=== PATIENT | female | born 1985 | race Caucasian/White ===

== ENCOUNTER 2017-10-23 14:34 | Emergency (ER) | payer OTHER ==
[~2017-10-23] VITALS: Ht 167.6 cm; Wt 72.0 kg
[~2017-10-23 14:34] MED LIST: CEPH-460 PO; HYDR-3288 PO
[2017-10-23 15:02] VITALS: BP 117/81; PULSE 105; RESP 20; TEMP 98.4; O2SAT 100
[2017-10-23] MEDS ORDERED: SODIUM CHLOR 0.9% 1000 ML INJ 1,000 ML IV ONE ×2 (16:02)
[2017-10-23] MEDS ORDERED: SODIUM CHLOR 0.9% 1000 ML INJ 400 ML IV ONE (16:02)
--- NOTE | 2017-10-23 16:11 | PD ---
HPI Chief Complaint: Skin Problem Time Seen by Provider: 15:54 (Lanette Mandujano) Time Seen by Provider: 15:54 (Monika Gomez MD) Travel History International Travel<30 days: No Contact w/Intl Traveler<30days: No Traveled to known affect area: No (Lanette Mandujano) History of Present Illness HPI 32y female with a history of PUD presents to the ED with pain to the right leg for 3 days because of what she believes is an abscess. Says she injected IV heroin yesterday and this morning and this is worsened her pain. Described her pain as moderate, sharp, achy in stinging without palliative or provocative factors. Patient denies fevers but does feel chills. She has a history of anxiety and depression. LMP 3 days ago. Patient states she has a history of MRSA and septic arthritis to her knee and shoulder while in [place]. 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 (Lanette Mandujano) PFSH Past Medical History Bipolar Disorder: Yes Anxiety: Yes Depression: Yes Cancer: No Cardiovascular Problems: No Diminished Hearing: No Endocrine: No Gastrointestinal Disorders: Yes (gastroparesis) Genitourinary: No Musculoskeletal: Yes Neurologic: Yes Psychiatric: No Reproductive: No Respiratory: No Immunizations Current: Yes Pancreatitis: Yes Seizures: Yes Tetanus Vaccination: < 5 Years Influenza Vaccination: No ?: Not LMP: 10/20/17 : 3 Para: 2 : 1 Dilation and Curettage (D&C): Yes (Lanette Mandujano) Past Surgical History Other Surgery: Yes (MULTIPLE I&D FOR MRSA ABSCESSES) (Lanette Mandujano) Social History Alcohol Use: Yes (socially) Tobacco Use: Yes (/2-1 ppd) Substance Use: Yes (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) (Lanette Mandujano) Allergies-Medications (Allergen,Severity, Reaction): Coded Allergies: diclofenac (Unverified Allergy, Severe, Ulcers, 10/23/17) etodolac (Unverified Allergy, Severe, Ulcers, 10/23/17) flurbiprofen (Unverified Allergy, Severe, Ulcers, 10/23/17) ibuprofen (Unverified Allergy, Severe, Ulcers, 10/23/17) indomethacin (Unverified Allergy, Severe, Ulcers, 10/23/17) ketoprofen (Unverified Allergy, Severe, Ulcers, 10/23/17) ketorolac (Unverified Allergy, Severe, Ulcers, 10/23/17) naproxen (Unverified Allergy, Severe, Ulcers, 10/23/17) oxaprozin (Unverified Allergy, Severe, Ulcers, 10/23/17) tramadol (Unverified Allergy, Severe, Seizures, 10/23/17) Reported Meds & Prescriptions Reported Meds & Active Scripts Active (Monika Gomez MD) Review of Systems Except as stated in HPI: all other systems reviewed are Neg (Lanette Mandujano) Physical Exam Narrative GENERAL: WD, WN in mild distress SKIN: Focused skin assessment warm/dry. HEAD: Atraumatic. Normocephalic. EYES: Pupils equal and round. No scleral icterus. No injection or drainage. ENT: No nasal bleeding or discharge. Mucous membranes pink and moist. NECK: Trachea midline. No JVD. CARDIOVASCULAR: Regular rate and rhythm. No murmur appreciated. RESPIRATORY: No accessory muscle use. Clear to auscultation. Breath sounds equal bilaterally. GASTROINTESTINAL: Abdomen soft, non-tender, nondistended. Hepatic and splenic margins not palpable. MUSCULOSKELETAL: No obvious deformities. No clubbing. No cyanosis. No edema. RLE- central area of induration to lateral calf with erythema distal to site to level of ankle NEUROLOGICAL: Awake and alert. No obvious cranial nerve deficits. Motor grossly within normal limits. Normal speech. PSYCHIATRIC: Appropriate mood and affect; insight and judgment normal. (Lanette Mandujano) Data Data Last Documented VS Vital Signs Date Time Temp Pulse Resp B/P (MAP) Pulse Ox O2 Delivery O2 Flow Rate FiO2 10/23/17 21:36 10/23/17 21:15 100 20 99 Room Air 10/23/17 15:02 98.4 (Monika Gomez MD) Orders Orders Sepsis Workup Initiated (10/23/17 ) Complete Blood Count With Diff (10/23/17 16:02) Comprehensive Metabolic Panel (10/23/17 16:02) Urinalysis - C+S If Indicated (10/23/17 16:02) Blood Culture (10/23/17 16:02) Chest, Single Ap (10/23/17 16:02) Blood Glucose (10/23/17 16:02) Ecg Monitoring (10/23/17 16:02) Iv Access Insert/Monitor (10/23/17 16:02) Oximetry (10/23/17 16:02) Oxygen Administration (10/23/17 16:02) Acetaminophen (Tylenol) (10/23/17 16:15) Sodium Chlor 0.9% 1000 Ml Inj (Ns 1000 M (10/23/17 16:02) Sodium Chlor 0.9% 1000 Ml Inj (Ns 1000 M (10/23/17 16:02) Sodium Chlor 0.9% 1000 Ml Inj (Ns 1000 M (10/23/17 16:02) Clindamycin Inj (Cleocin Inj) (10/23/17 16:45) Asp: Location Of [facility] Admin (Asp Crit: (10/23/17 18:15) Asp:No Reaction To [facility]/Vanc (Asp Crit (10/23/17 18:15) Asp:No Reaction To [facility]/Vanc (Asp Crit (10/23/17 18:15) Asp: Does Not Meet Inpt Admit (Asp Crit: (10/23/17 18:15) Asp: Iv Antibiotics Admit Only (Asp Crit (10/23/17 18:15) Asp: Location Of [facility] Admin (Asp Crit: (10/23/17 18:15) [facility] Information ([facility] (10/23/17 18:15) Dalbavancin Inj (Dalvance Inj) (10/23/17 18:13) Morphine Inj (Morphine Inj) (10/23/17 20:45) Ed Discharge Order (10/23/17 22:08) (Monika Gomez MD) Labs Laboratory Tests Test 10/23/17 17:45 10/23/17 18:12 White Blood Count 9.6 TH/MM3 Red Blood Count 3.79 MIL/MM3 Hemoglobin 11.5 GM/DL Hematocrit 35.1 % Mean Corpuscular Volume 92.5 FL Mean Corpuscular Hemoglobin 30.3 PG Mean Corpuscular Hemoglobin Concent 32.8 % Red Cell Distribution Width 13.3 % Platelet Count 181 TH/MM3 Mean Platelet Volume 8.0 FL Neutrophils (%) (Auto) 69.8 % Lymphocytes (%) (Auto) 17.6 % Monocytes (%) (Auto) 11.4 % Eosinophils (%) (Auto) 1.0 % Basophils (%) (Auto) 0.2 % Neutrophils # (Auto) 6.7 TH/MM3 Lymphocytes # (Auto) 1.7 TH/MM3 Monocytes # (Auto) 1.1 TH/MM3 Eosinophils # (Auto) 0.1 TH/MM3 Basophils # (Auto) 0.0 TH/MM3 CBC Comment DIFF FINAL Differential Comment Blood Urea Nitrogen 10 MG/DL Creatinine 0.41 MG/DL Random Glucose 95 MG/DL Total Protein 6.7 GM/DL Albumin 2.5 GM/DL Calcium Level 7.9 MG/DL Alkaline Phosphatase 88 U/L Aspartate Amino Transf (AST/SGOT) 29 U/L Alanine Aminotransferase (ALT/SGPT) 41 U/L Total Bilirubin 0.2 MG/DL Sodium Level 136 MEQ/L Potassium Level 3.9 MEQ/L Chloride Level 106 MEQ/L Carbon Dioxide Level 22.3 MEQ/L Anion Gap 8 MEQ/L Estimat Glomerular Filtration Rate 182 ML/MIN Urine Color LIGHT-YELLOW Urine Turbidity CLEAR Urine pH 6.5 Urine Specific [place] 1.009 Urine Protein NEG mg/dL Urine Glucose (UA) NEG mg/dL Urine Ketones NEG mg/dL Urine Occult Blood NEG Urine Nitrite NEG Urine Bilirubin NEG Urine Urobilinogen LESS THAN 2.0 MG/DL Urine Leukocyte Esterase NEG Urine RBC LESS THAN 1 /hpf Urine WBC LESS THAN 1 /hpf Urine Squamous Epithelial Cells 6 /hpf Urine Bacteria RARE /hpf Microscopic Urinalysis Comment CATH-CULT NOT IND (Monika Gomez MD) [facility] Medical Decision Making Medical Screen Exam Complete: Yes Emergency Medical Condition: Yes Differential Diagnosis Right lower extremity abscess, cellulitis, erysipelas Narrative Course 32-year-old female with an extensive history of IV drug use presents emergency department complaining of right lower extremity pain for 3 days. States that she injected heroin to that area and developed this swelling and pain since then. States that she has had chills but denies nausea, vomiting, chest pain, shortness of breath. Vital signs 120/71, 98.4 temperature, heart rate 101, SaO2 100%. Physical exam demonstrates an anxious well-developed, well-nourished 32-year- old female, right lower extremity with cellulitis extending to the lateral aspect of her calf. No fluctuance. Note that patient's IV access was very difficult and took an extended amount of time to obtain. Clindamycin 600 mg IM administered. Labs and imaging studies ordered CBC & BMP Diagram 10/23/17 17:45 Total Protein 6.7, Albumin 2.5 L, Calcium Level 7.9 L, Alkaline Phosphatase 88, Aspartate Amino Transf (AST/SGOT) 29, Alanine Aminotransferase (ALT/SGPT) 41, Total Bilirubin 0.2 Because of patient's history, ordered blood cultures. Tylenol, 2-1/2 L normal saline IV bolus, I discussed this case with Dr. Gomez, my attending, she recommended Dalvance. It took an extended amount of time for patient to receive Dalvance. Patient states that she wants to leave at this point. She says that she "does not feel good" and is in a significant amount of pain. I believe that the patient leaves prior to treatment, she will worsen. I will order 2mg morphine for her diffuse pain in a compromise to keep her for abx administration. Initially prescribed Bactrim and Keflex the patient agreed to stay she received Dalvance. I discussed the treatment plan with the patient and she agreed and is appreciative of the care she has received today. Patient will be discharged advised to follow-up Sunny Caceres and her primary care physician. (Lanette Mandujano) Diagnosis Primary Impression: Cellulitis Qualified Codes: L03.115 - Cellulitis of right lower limb Referrals: [facility] Additional Instructions: Follow-up with primary care physician within 2-3 days. Avoid IV drugs or other illicit drugs as a may kill you. I recommend follow-up with David Caceres and your primary care as soon as possible. Disposition: 01 DISCHARGE HOME Condition: Stable Lanette Mandujano Oct 23, 2017 16:11 Monika Gomez MD Oct 23, 2017 19:49
[2017-10-23] MEDS ORDERED: ACETAMINOPHEN 325 MG TAB PO ONE (16:15)
[2017-10-23 16:39] VITALS: BP 120/71; PULSE 101; RESP 19; O2SAT 100
[2017-10-23] MEDS ORDERED: CLINDAMYCIN PHOS 600 MG/4 ML VIAL IM ONE (16:45)
--- NOTE | 2017-10-23 17:42 | RADRPT ---
EXAM DATE/TIME: 10/23/2017 17:21 [facility] COMPARISON: No previous studies available for comparison. INDICATIONS : Fever. Patient being seen for right lower leg infection. MEDICAL HISTORY : Pancreatitis. Gastroparesis. SURGICAL HISTORY : None. ENCOUNTER: Initial ACUITY: 3 days PAIN SCORE: 0/10 LOCATION: Bilateral chest FINDINGS: A single view of the chest demonstrates the lungs to be symmetrically aerated without evidence of mas s, infiltrate or effusion. The cardiomediastinal contours are unremarkable. Osseous structures are intact. CONCLUSION: 1. No active disease. Jack Morales MD on October 23, 2017 at 17:39 Board Certified Radiologist. This report was verified electronically.
[2017-10-23 18:03] LABS: AUTOMATED NEUTROPHIL # 6.7 TH/MM3 (1.8-7.7); BASOPHIL % 0.2 % (0.0-2.0); EOSINOPHIL # 0.1 TH/MM3 (0-0.4); HEMATOCRIT 35.1 % (35.0-46.0); HEMOGLOBIN 11.5 GM/DL (11.6-15.3); LYMPH % 17.6 % (9.0-44.0); LYMPHOCYTE # 1.7 TH/MM3 (1.0-4.8); MEAN CELL VOLUME 92.5 FL (80.0-100.0); MEAN CORPUSCULAR HEMOGLOBIN 30.3 PG (27.0-34.0); MEAN CORPUSCULAR HGB CONC 32.8 % (32.0-36.0); MONO % 11.4 % (0.0-8.0); MONOCYTE # 1.1 TH/MM3 (0-0.9); NEUT % 69.8 % (16.0-70.0); PLATELET COUNT 181 TH/MM3 (150-450); RED BLOOD COUNT 3.79 MIL/MM3 (4.00-5.30); RED CELL DISTRIBUTION WIDTH 13.3 % (11.6-17.2); WHITE BLOOD COUNT 9.6 TH/MM3 (4.0-11.0)
[2017-10-23] MEDS ORDERED: DALBAVANCIN INJ 1,500 MG in DEXTROSE 5% IN WATE 500 ML INJ 500 ML IV STA ×2 (18:13)
[2017-10-23] MEDS ORDERED: ASP: Location of Dalbavancin administration OTHER ONE ×2 (18:15)
[2017-10-23] MEDS ORDERED: ASP: Does not meet inpatient admission criteria OTHER ONE (18:15)
[2017-10-23] MEDS ORDERED: ASP: No known hypersensitivity to Vanco, Telavancin, Dalbavancin OTHER ONE ×2 (18:15)
[2017-10-23] MEDS ORDERED: ASP: Only reason for admit - IV antibiotics OTHER ONE (18:15)
[2017-10-23] MEDS ORDERED: MISCELLANEOUS PHARMACY INFORMATION XX ONE (18:15)
[2017-10-23 18:26] LABS: ALBUMIN 2.5 GM/DL (3.4-5.0); AST (GOT) 29 U/L (15-37); BICARBONATE 22.3 MEQ/L (21.0-32.0); BLOOD UREA NITROGEN 10 MG/DL (7-18); CALCIUM 7.9 MG/DL (8.5-10.1); CHLORIDE 106 MEQ/L (98-107); CREATININE 0.41 MG/DL (0.50-1.00); GLOMERULAR FILTRATION RATE 182 ML/MIN (>89); GLUCOSE,RANDOM 95 MG/DL (74-106); SODIUM (NA) 136 MEQ/L (136-145)
[2017-10-23 18:28] LABS: ALT (GPT) 41 U/L (10-53)
[2017-10-23 18:30] LABS: ALKALINE PHOSPHATASE 88 U/L (45-117); TOTAL BILIRUBIN ADULT 0.2 MG/DL (0.2-1.0); TOTAL PROTEIN 6.7 GM/DL (6.4-8.2)
[2017-10-23 18:57] LABS: BACTERIA, URINE RARE /hpf; BILIRUBIN, URINE NEG (NEG); BLOOD, URINE NEG (NEG); GLUCOSE,URINE NEG (NEG); KETONE, URINE NEG (NEG); NITRITE,URINE NEG (NEG); PH, URINE 6.5 (5.0-8.5); SQUAMOUS EPITHELIAL CELL URINE 6 /hpf (0-5); URINE COLOR LIGHT-YELLOW (YELLW/STRAW); URINE LEUKOCYTE ESTERASE NEG (NEG)
[2017-10-23] MEDS ORDERED: MORPHINE SULFATE 2 MG/ML INJ IV PUSH ONE (20:45)
[2017-10-23] MEDS ORDERED: CEPH-460 PO (20:56)
[2017-10-23] MEDS ORDERED: BACT800T5 PO (20:56)
[2017-10-23 21:15] VITALS: BP 118/73; PULSE 100; RESP 20; O2SAT 99
== END 2017-10-23 23:21 | disposition home or self-care (01) ==
LOC: NEPC 14:34
DX: L03.115 Cellulitis of right lower limb (principal); F31.9 Bipolar disorder, unspecified; F17.210 Nicotine dependence, cigarettes, uncomplicated; Z88.6 Allergy status to analgesic agent; Z88.8 Allergy status to other drugs, medicaments and biological substances
CPT/HCPCS: 71045; 80053; 81001; 85025; 87040; 96361; 96365; 96372; 96375; 99284; J0875; J2270; J7030; J7060